=== PATIENT | male | born 1955 | race Caucasian/White ===

== ENCOUNTER 2022-03-16 20:44 | Emergency (ER) | payer BC, MEDICAID ==
[~2022-03-16] VITALS: Ht 167.6 cm; Wt 63.5 kg
[2022-03-16 20:53] VITALS: BP_SYST 122
[2022-03-16 21:49] LABS: ANION GAP 5 (5-15); CHLORIDE 103 mmol/L (98-107); CREATININE 1.58 mg/dL (0.55-1.30); GLUCOSE 228 mg/dL (70-99); UREA NITROGEN, BLOOD 31 mg/dL (8-21)
[2022-03-16 21:50] LABS: BASOPHILS % (AUTO) 0.4 % (0.0-2.0); EOSINOPHILS # (AUTO) 0.2 K/uL (0.0-0.4); HEMATOCRIT 43.4 % (36-54); HEMOGLOBIN 14.9 g/dL (14.0-18.0); LYMPHOCYTES # (AUTO) 2.4 K/uL (1.0-5.5); LYMPHOCYTES % (AUTO) 34.2 % (20.5-51.5); MEAN CORPUSCULAR HEMOGLOBIN 32 pg (27-31); MEAN CORPUSCULAR HGB CONC 34 % (32-36); MEAN CORPUSCULAR VOLUME 95 fL (79.0-98.0); MONOCYTES # (AUTO) 0.6 K/uL (0.0-1.0); NEUTROPHILS # (AUTO) 3.8 K/uL (1.8-7.7); NEUTROPHILS % (AUTO) 54.4 % (40.0-70.0); PLATELET COUNT (AUTO) 212 K/uL (130-430); RED BLOOD CELL COUNT(AUTO) 4.59 MIL/uL (4.2-6.2); RED CELL DISTRIBUTION WIDTH 13.6 % (9.0-15.0)
[2022-03-16] MEDS ORDERED: LISI20TA30 PO (21:50)
[2022-03-16] MEDS ORDERED: HYDR-3927 PO (21:50)
[2022-03-16] MEDS ORDERED: APIX5TAB PO (21:50)
[2022-03-16] MEDS ORDERED: TRAZ-250 PO (21:50)
[2022-03-16] MEDS ORDERED: SSNOVOLOG SUBCUT (21:50)
[2022-03-16] MEDS ORDERED: GLIP10TA11 PO (21:50)
[2022-03-16] MEDS ORDERED: LIP20 PO (21:50)
[2022-03-16 21:52] LABS: GFR AFRICAN AMERICAN 57 mL/min (>90)
[2022-03-16 21:56] LABS: ALANINE AMINOTRANSFERASE 34 U/L (12-78); ALBUMIN 3.7 g/dL (3.4-4.8); ASPARTATE AMINOTRANSFERASE 18 U/L (10-37); TOTAL BILIRUBIN 0.4 mg/dL (0.0-1.0)
--- NOTE | 2022-03-16 22:13 | NUR ---
PT [facility]. pT AOX4 CC CP NO RADIATING PAIN. PT BLAFRANKY NEW MEDICATION TAKEN FOR CP (ELOQUIS). 20G L FOREARM.
[2022-03-16] MEDS ORDERED: MAGN24002 PO (23:26)
[2022-03-16] MEDS ORDERED: ACET325T53 (23:26)
[2022-03-16] MEDS ORDERED: HYDR-3908 PO (23:26)
[2022-03-16] MEDS ORDERED: MAGN1TAB PO (23:26)
--- NOTE | 2022-03-17 05:43 | NUR ---
Report given to YASMINE Mace. PAtient will go back to [facility]. ETA 0630 hrs
[2022-03-17 06:59] VITALS: BP_SYST 129
--- NOTE | 2022-03-17 07:02 | NUR ---
PT DC TO [facility]. REPORT GIVEN. PT COOPERATIVE. [id number] PROTOCOL FOR TRANSPORT
== END 2022-03-17 07:02 ==
LOC: SED 20:44
DX: R07.89 Other chest pain (principal); R00.2 Palpitations; R06.02 Shortness of breath; Z79.4 Long term (current) use of insulin; Z79.899 Other long term (current) drug therapy
CPT/HCPCS: 36415; 71045; 80053; 83880; 84484; 85025; 93005; 99285